=== PATIENT | female | born 1970 | race Caucasian/White ===

== ENCOUNTER 2019-12-20 16:10 | Emergency (ER) | payer SELFPAY ==
[2019-12-20] MEDS ORDERED: DIPH/PERTUSS(ACELL)/TETANUS VAC/PF 0.5 ML SYR (>=10YO) IM ONE (16:22)
--- NOTE | 2019-12-20 16:22 | ER Document Report ---
ED Medical Screen (RME) - General Chief Complaint: Laceration Stated Complaint: LACERATION/LEFT MIDDLE FINGER Time Seen by Provider: 12/20/19 16:20 Mode of Arrival: Ambulatory Information source: Patient Notes: 49-year-old female presents to ED for 2 lacerations to the left middle finger. She states she was trying to use a hedge clippers when she cut her finger twice on the same finger with a hedge clippers. I thought there was just one laceration I did clean address that and then while I was cleaning the blood from the rest of the hand there is another laceration proximal to the first 1 that I had dressed. Patient is alert oriented respirations regular nonlabored speaking in full sentences. She does not know for sure when her last tetanus shot was so we will be ordering a tetanus immunization. I have greeted and performed a rapid initial assessment of this patient. A comprehensive ED assessment and evaluation of the patient, analysis of test results and completion of medical decision making process will be conducted by an additional ED providers. - Related Data Allergies/Adverse Reactions: No Known Allergies Allergy (Verified 07/05/14 12:02) Past Medical History - Immunizations Hx Diphtheria, Pertussis, Tetanus Vaccination: Yes Physical Exam - Vital signs Vitals: Temp Pulse Resp BP Pulse Ox 97.7 F 74 18 154/98 H 97 12/20/19 16:15 12/20/19 16:15 12/20/19 16:15 12/20/19 16:15 12/20/19 16:15 Course - Vital Signs Vital signs: Temp Pulse Resp BP Pulse Ox 97.7 F 74 18 154/98 H 97 12/20/19 16:15 12/20/19 16:15 12/20/19 16:15 12/20/19 16:15 12/20/19 16:15
[2019-12-20] MEDS ORDERED: LIDOCAINE 1% INJ (10 MG/ML) 10 ML MDV ONE (16:29)
[2019-12-20] MEDS ORDERED: LIDOCAINE 1% INJ (10 MG/ML) 10 ML MDV INJ ONE (16:57)
--- NOTE | 2019-12-20 17:01 | ER Document Report ---
ED General - General Chief Complaint: Laceration Stated Complaint: LACERATION/LEFT MIDDLE FINGER Time Seen by Provider: 12/20/19 16:20 Mode of Arrival: Ambulatory Information source: Patient TRAVEL OUTSIDE OF THE [place] IN LAST 30 DAYS: No - HPI Onset: Just prior to arrival Onset/Duration: Gradual Quality of pain: Sharp, Throbbing Severity: Moderate Pain Level: 2 Associated symptoms: Other - bleeding from finger Exacerbated by: Other - movement of her middle finger Relieved by: Other - keeping her finger still Similar symptoms previously: No Recently seen / treated by doctor: No Notes: 49 year old female with no significant PMH here for lacerations to her left middle finger. The patient was cutting bushes and she accidentally cut her left middle finger in 2 spots. The patient denies numbness or tingling of her finger. The patient is unsure of her last tetanus shot. - Related Data Allergies/Adverse Reactions: No Known Allergies Allergy (Verified 07/05/14 12:02) Past Medical History - General Information source: Patient - Social History Smoking Status: Never Smoker Frequency of alcohol use: Occasional Drug Abuse: None Lives with: Family Family History: Reviewed & Not Pertinent Patient has suicidal ideation: No Patient has homicidal ideation: No - Immunizations Hx Diphtheria, Pertussis, Tetanus Vaccination: Yes Review of Systems - Review of Systems Constitutional: No symptoms reported EENT: No symptoms reported Cardiovascular: No symptoms reported Respiratory: No symptoms reported Gastrointestinal: No symptoms reported Genitourinary: No symptoms reported Female Genitourinary: No symptoms reported Musculoskeletal: No symptoms reported Skin: Other - two lacerations to left 3rd finger on aguirre side Hematologic/Lymphatic: No symptoms reported Neurological/Psychological: No symptoms reported -: Yes All other systems reviewed and negative Physical Exam - Vital signs Vitals: Temp Pulse Resp BP Pulse Ox 97.7 F 74 18 154/98 H 97 12/20/19 16:15 12/20/19 16:15 12/20/19 16:15 12/20/19 16:15 12/20/19 16:15 - Notes Notes: GENERAL: Well-appearing, well-nourished and in no acute distress. HEAD: Atraumatic, normocephalic. EYES: Pupils equal round and reactive to light, extraocular movements intact, sclera anicteric, conjunctiva are normal. ENT: TMs normal, nares patent, oropharynx clear without exudates. Moist mucous membranes. NECK: Normal range of motion, supple without lymphadenopathy or JVD. LUNGS: Breath sounds clear to auscultation bilaterally and equal. No wheezes rales or rhonchi. HEART: Regular rate and rhythm without murmurs, rubs or gallops. ABDOMEN: Soft, nontender, normoactive bowel sounds. No guarding, no rebound. No masses appreciated. EXTREMITIES: Normal range of motion, no pitting or edema. No clubbing or cyanosis. NEUROLOGICAL: Cranial nerves II through XII grossly intact. Normal speech, normal gait. PSYCH: Normal mood, normal affect. SKIN: Two Lacerations to left 3rd middle finger on agu[place]re side. 1st laceration is 1cm and linear just distal to the DIP. 2nd laceration is 0.5cm and wedge shaped. Skin is otherwise warm, dry, normal turgor, no rashes or lesions noted. Course - Re-evaluation Re-evalutation: 12/20/19 17:16 The patient had her lacerations (two total) repaired by me and her tetanus was updated. The patient was told to use topical antibiotic ointment until her wounds are completely healed. - Vital Signs Vital signs: Temp Pulse Resp BP Pulse Ox 97.7 F 74 18 154/98 H 97 12/20/19 16:15 12/20/19 16:15 12/20/19 16:15 12/20/19 16:15 12/20/19 16:15 Procedures - Laceration/Wound Repair Left Volar Finger 3rd digit Wound length (cm): 1 Wound's Depth, Shape: Superficial, Linear Laceration pre-procedure: Betadine prep applied Anesthetic type: 1% Lidocaine Volume Anesthetic (mLs): 2 Wound explored: Clean Irrigated w/ Saline (mLs): 250 Wound Repaired With: Sutures Suture Size/Type: 5:0, Prolene Number of Sutures: 5 Layer Closure?: No Post-procedure NV exam normal: Yes Complications: No 2nd laceration on Left 3rd Middle Finger Volar Side Wound length (cm): 0.5 Wound's Depth, Shape: Superficial, Flap Laceration pre-procedure: Betadine prep applied Anesthetic type: 1% Lidocaine Volume Anesthetic (mLs): 1 Wound explored: Clean, Foreign body removed Wound Repaired With: Sutures Suture Size/Type: 5:0, Prolene Number of Sutures: 1 Layer Closure?: No Discharge - Discharge Clinical Impression: Finger laceration Qualifiers: Encounter type: initial encounter Finger: middle finger Damage to nail status: without damage Foreign body presence: without foreign body Laterality: left Qualified Code(s): S61.213A - Laceration without foreign body of left middle finger without damage to nail, initial encounter Condition: Stable Disposition: HOME, SELF-CARE Instructions: Laceration Care ([facility]) Additional Instructions: Keep your finger wounds covered in over the counter antibiotic ointment until they are completely healed. Have the sutures removed in 7 days. Seek medical attention for signs of a wound infection such as redness, swelling, wound drainage, fevers. Prescriptions: Ibuprofen [Motrin 800 mg Tablet] 800 mg PO Q8H PRN #30 tab PRN Reason:
[2019-12-20 17:24] VITALS: BP 146/79
== END 2019-12-20 17:22 | disposition home or self-care (01) ==
LOC: ER 16:10
DX: S61.213A Laceration without foreign body of left middle finger without damage to nail, initial encounter (principal); W29.3XXA Contact with powered garden and outdoor hand tools and machinery, initial encounter; Y93.H2 Activity, gardening and landscaping; Z23 Encounter for immunization
CPT/HCPCS: 90471; 90715; 99282